=== PATIENT | female | born 1950 | race Caucasian/White ===

== ENCOUNTER → 2022-06-18 | Outpatient (CLI) | payer MEDICARE, BC ==
--- NOTE | 2022-06-18 14:59 | NM ---
EXAMINATION TYPE: NM bone scan whole body DATE OF EXAM: 06/18/2022 COMPARISON: NONE HISTORY: History of malignancy Delayed whole-body scanning was performed following the injection of 24.3 mCi Tc 99m MDP. Images acq uired 3 hours post injection. FINDINGS: Abnormal uptake involving bilateral hip likely post arthritic. Moderate intensity abnormal uptake involving bilateral knees greater on the left is likely post arthr itic. Mild intensity uptake throughout the thoracic spine with a focal moderate area at T11 on the right mo st likely degenerative. IMPRESSION: 1. Suspect abnormal uptake involving the hips bilaterally greater on the right is more likely arthrit ic rather than metastatic disease. There are no x-ray or CTs available for comparison. 2. Mild intensity uptake throughout the vertebral column of the thoracic spine is most typical for de generative change. Small focal area on the right at T11 likely is also more likely degenerative. Russell elate with x-ray as clinically warranted.
== END | disposition home or self-care (01) ==
LOC: RADNMMAIN 10:12
PROVIDERS: ATTEND Internal Medicine Hematology & Oncology
DX: C50.812 Malignant neoplasm of overlapping sites of left female breast (principal); M47.814 Spondylosis without myelopathy or radiculopathy, thoracic region
CPT/HCPCS: 78306; A9503

== ENCOUNTER 2022-11-24 05:45 | Day surgery (SDC) | payer MEDICARE, BC ==
[2022-11-22 11:23] VITALS: BMI 35.2
[~2022-11-24 05:45] MED LIST: BUPIVACAINE (PF) 0.5% 4.5 ML, HYALURONIDASE, HUMAN RECOMB 150 UNIT, LIDOCAINE 2% (PF) 9... IO PRN
[2022-11-24] MEDS ORDERED: LACTATED RINGERS 1,000 ML IV SCH (05:54)
[2022-11-24] MEDS ORDERED: TIMOLOL 0.5% OPHTH DROPS 5 ML BTL OP PRN (06:00)
[2022-11-24] MEDS ORDERED: MOXIFLOXACIN HCL 0.5% DROPS 3 ML BTL OP PRN (06:00)
[2022-11-24 06:16] VITALS: RESP 18; TEMP 97.7
[2022-11-24] MEDS ORDERED: LIDOCAINE 2% INJ 20 MG/ML (2 ML VIAL) ONE (07:45)
[2022-11-24] MEDS ORDERED: diphenhydrAMINE 50 MG/ML 1 ML VIAL ONE (07:45)
[2022-11-24] MEDS ORDERED: PROPOFOL 10 MG/ML 20 ML VIAL IV ONE (07:45)
[2022-11-24] MEDS ORDERED: fentaNYL (PF) 50 MCG/ML 2 ML AMP ONE (07:45)
[2022-11-24] MEDS ORDERED: GLYCOPYRROLATE 0.2 MG/ML 2 ML VIAL ONE (07:45)
[2022-11-24] MEDS ORDERED: MIDAZOLAM 2 MG/2 ML VIAL ONE (07:45)
[2022-11-24] MEDS ORDERED: LACTATED RINGERS 1,000 ML IV ONE (07:48)
[2022-11-24] MEDS ORDERED: BALANCED SALT IRRIG SOLN COMB2 500 ML IRRIGATION ONE (07:58)
[2022-11-24] MEDS ORDERED: BALANCED SALT IRRIG SOLN COMB2 15 ML IRRIG.SOLN IRRIGATION ONE (08:00)
[2022-11-24] MEDS ORDERED: FLUORESCEIN STRIPS 1 MG STRIP LEFT EYE ONE (08:40)
[2022-11-24] MEDS ORDERED: TETRACAINE 0.5% OPHTH (PF) DROPS 4 ML BTL LEFT EYE ONE (09:16)
--- NOTE | 2022-11-24 10:02 | P.OP ---
Date of Procedure: 11/24/22 Preoperative Diagnosis: corneal melt Postoperative Diagnosis: anterior lamaller corneal transplant left Procedure(s) Performed: same Implants: none Anesthesia: MAC Surgeon: Contreras Roca Pathology: none sent Condition: stable Disposition: same day Indications for Procedure: pending loss of integrity Operative Findings: no complications
[2022-11-24 10:28] VITALS: BP 164/75; PULSE 50
--- NOTE | 2022-11-24 22:44 | OP ---
OPERATIVE REPORT DATE OF SERVICE : 11/24/2022 PROCEDURE PERFORMED: Anterior lamellar corneal transplant of the left eye. 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 ANESTHESIA: Regional block with retrobulbar anesthesia. ESTIMATED BLOOD LOSS: None. SPECIMEN TAKEN: Culture and sensitivity of transport media for the transplant tissue. 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 The left eye has demonstrated progressive central corneal thinning over the last several months and multiple forms of rescue have been attempted and failed at this point to where there is less than 150 microns of tissue between the anterior chamber and the outside world in this nonphthisical eye. Therefore, it was chosen to reinforce the existing cornea with an anterior lamellar corneal transplant tissue. After obtaining the appropriate consent, the patient was brought to the operating room. there she was placed on cardiac monitoring, prepped and draped in usual sterile manner. She was approached from her left temporal side and Brake calipers were used to identify the size of the allowable remaining tissue to put a donor graft onto the eye. This was identified as approximately 9 mm and using a Nedra trephine blade centered over the patient's cornea, a 9 mm diameters partial groove was created on the patient's cornea. This was inked with gentian luma and using a crescent blade, a pocket was created between the 9 mm darek and the peripheral corneal limbus, so for 360 degrees, a partial thickness scleral flap was created in the patient's post eye to receive the donor tissue. Once the groove was created and epithelium was removed, which was confirmed using fluorescein, attention was then directed to the donor tissue. Donor tissue was identified as [id number]. This was brought onto the back table and preparation of this tissue was placed on the artificial anterior chamber and both a 9 mm Nedra trephine as well as a 9.5 Nedra trephine were placed centrally over the donor cornea and marked with gentian luma. The donor cornea was then inverted and placed on the trephination punch bed, well positioned and centered on the bed. The [place] trephine was assembled and vacuum drawn against the donor tissue and a 9.5 mm donor button was created in the donor tissue. The donor button was then brought to the patient's field and endothelium was removed from the underside of the donor cornea. The 0.5 mm edge between the 9 and 9.5 contreras on the donor tissue was removed of epithelium and as much of the Garcia's membrane as possible leaving roughly a 0.5 mm ring of bare stroma. An 8-point corneal suturing index was inked with gentian luma, placed on the patient's cornea and then the donor button was placed on the patient's host cornea after removing all epithelium. Small amount of Tisseel was placed between the 2 and allowed to cure for approximately 90 seconds. Once this was accomplished, then 8 interrupted 10-0 nylon sutures were passed in a radial fashion through the donor and into the post corneal limbus as far as permitted through the previously created partial thickness dissection. All 10-0 nylon sutures were rotated, had a notch rotated into the stroma of either the host or the donor tissue. The incision was confirmed watertight and as much of the donor tissue was tucked into the pocket as feasible. The patient received 2 drops of 0.5% timolol followed by 2 drops of moxifloxacin and she was then lightly patched and shielded in the usual manner. There were no complications from the procedure. She tolerated the procedure well and was returned to outpatient recovery in good condition. MMODL / IJN: [id number] / SHANTEL
== END 2022-11-24 11:04 | disposition home or self-care (01) ==
LOC: OR 05:45
PROVIDERS: ATTEND Ophthalmology
DX: H16.23 Neurotrophic keratoconjunctivitis (principal); E07.9 Disorder of thyroid, unspecified; M19.90 Unspecified osteoarthritis, unspecified site; Z79.82 Long term (current) use of aspirin; Z79.899 Other long term (current) drug therapy; Z79.890 Hormone replacement therapy; Z85.3 Personal history of malignant neoplasm of breast; Z88.0 Allergy status to penicillin; Z88.2 Allergy status to sulfonamides; Z91.041 Radiographic dye allergy status; Z91.048 Other nonmedicinal substance allergy status; Z88.8 Allergy status to other drugs, medicaments and biological substances
CPT/HCPCS: 87070; 87205; 65710; J2250; J3470; J1200; J2001 ×2; J3010; J2704

== ENCOUNTER 2023-01-21 06:13 | Day surgery (SDC) | payer MEDICARE, BC ==
[~2023-01-21 06:13] MED LIST changes: +DEXAMETHASONE SOD PHOSPHATE 4 MG/ML 1 ML VIAL IV ONE; +GENTAMICIN 80 MG/2 ML (MDV) VIAL IM NR; +LACTATED RINGERS 1,000 ML IV SCH; +LIDOCAINE 1% (10MG/ML) FOR IV START INTRADERMA PRN; +MIDAZOLAM 2 MG/2 ML VIAL IV PRN; +MOXIFLOXACIN HCL 0.5% DROPS 3 ML BTL OP PRN; +NEOMYCIN-POLYMYXIN-DEXAMETH OINT 3.5 GM TUBE OPHTHALMIC NR; +ONDANSETRON 4 MG/2 ML VIAL IVP ONE
[2023-01-21 06:56] VITALS: TEMP 96.9
[2023-01-21] MEDS ORDERED: diphenhydrAMINE 50 MG/ML 1 ML VIAL ONE ×2 (06:58→07:35)
[2023-01-21] MEDS ORDERED: HYDROmorphone 0.5 MG/0.5 ML SYRINGE IVP PRN (07:00)
[2023-01-21] MEDS ORDERED: diphenhydrAMINE 50 MG/ML 1 ML VIAL IVP ONE (07:05)
[2023-01-21] MEDS ORDERED: fentaNYL (PF) 50 MCG/ML 2 ML AMP ONE (07:35)
[2023-01-21] MEDS ORDERED: SUCCINYLCHOLINE CHLORIDE 200 MG/10 ML VIAL IV ONE (07:35)
[2023-01-21] MEDS ORDERED: PROPOFOL 10 MG/ML 20 ML VIAL IV ONE (07:35)
[2023-01-21] MEDS ORDERED: MIDAZOLAM 2 MG/2 ML VIAL ONE (07:35)
[2023-01-21] MEDS ORDERED: ceFAZolin 1,000 MG in SODIUM CHLORIDE 0.9% 500 ML IRRIGATION ONE (08:33)
[2023-01-21] MEDS ORDERED: BALANCED SALT IRRIG SOLN COMB2 15 ML IRRIG.SOLN IRRIGATION ONE (08:34)
[2023-01-21] MEDS ORDERED: LACTATED RINGERS 1,000 ML IV ONE (09:30)
--- NOTE | 2023-01-21 09:34 | P.OP ---
Date of Procedure: 01/21/23 Preoperative Diagnosis: phthisis bulbi OS Postoperative Diagnosis: same Procedure(s) Performed: evisceration OS Implants: IOI hydroxyapatite 18 mm orbital implant Anesthesia: GETA, regional Surgeon: Contreras Roca Estimated Blood Loss (ml): 5 Pathology: other (microbiology) Condition: stable Disposition: same day Indications for Procedure: painful left eye Operative Findings: no complications
[2023-01-21 10:34] VITALS: RESP 18
[2023-01-21 10:45] VITALS: BP 138/79; PULSE 64
--- NOTE | 2023-01-21 12:27 | OP ---
OPERATIVE REPORT DATE OF SERVICE : 01/21/2023 PROCEDURE PERFORMED: Evisceration with hydroxyapatite implant of the left eye. 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 ANESTHESIA: General. ESTIMATED BLOOD LOSS: 5 mL. SPECIMEN TAKEN: Uveal contents for microbiological studies. DESCRIPTION OF PROCEDURE: This is a patient, who has undergone multiple corneal transplants over the last 10 to 15 years, who approximately 7 years ago began to experience problems with rejection of the cornea, which ultimately led to no light perception and some problems with endophthalmitis. She has consistently had difficulty with maintaining the intraocular pressure at a normal level without experiencing discomfort. Recently, she has undergone an anterior lamellar keratoplasty to control what was developing into a descemetocele of this eye, within the last week and a half, however, the patient has begun to experience significant discomfort within the eye, markedly elevated intra- ocular pressures, and with no expectation of recovering sight in this eye, and the excruciating discomfort she has been experiencing. She has elected to undergo removal of the eye itself. Therefore, today, after obtaining the appropriate consent, the patient was brought to the operating room. There, she was placed under general anesthesia and intubated. She was prepped and draped in the usual sterile manner and a retrobulbar anesthetic consisting of 2% lidocaine without epinephrine and 0.5% Marcaine without epinephrine and Wydase were injected into the retrobulbar space. An eyelid speculum was placed on the patient's eye and a limbal peritomy of the conjunctival tissue was performed for 360 degrees. Hemostasis was controlled with pressure and a dampened either gauze or tonsil sponge. At the corneal limbus, an incision was begun with a #11 blade and was continued with Sharon scissors for 360 degrees, and the entire anterior portion of the eye was removed and set aside. The uveal tissue was then readily from the globe of the eye using a spatula. The entire contents of the uveal tissue were sent for microbiological study to rule out any particular infection, additional cleaning of the inside of the globe was accomplished with miniature tonsil sponges, and once the optic nerve was identified, a Bovie cautery was used to cauterize the remnant of the optic nerve at the back of the eye, two relaxing incisions were performed along the horizontal equator of the globe and sizing instruments were used to determine the appropriate size of an implant, 18 mm was identified and an 18 mm hydroxyapatite implant was placed within the confines of the sclera using a young implantation device, after the hydroxyapatite material was covered with Maxitrol ointment. The sclera was closed in its entirety using a locking running suture using 5-0 Dacron. The previously conjunctival tissue was then reapproximated over the sclera, closing the entire eyeball within the conjunctiva using 8-0 Vicryl in an interrupted fashion. She received 80 mg of gentamicin in the subconjunctival space at the end of the case, as well as 1 g of Ancef intravenously at the beginning of the case. Additional antibiotic used during the course of the procedure was an Ancef irrigation of the globe prior to implantation of the hydroxyapatite material. A conformer, which was associated with the hydroxyapatite implant was covered in Maxitrol ointment, placed in the eye, and a tight patch and shield were placed over the left eye. There were no complications from the procedure. She tolerated the procedure well and was awakened in the room and returned to phase 1 recovery, following the operation. MMODL / IJN: [id number] /
--- NOTE | 2023-01-21 12:36 | OP ---
OPERATIVE REPORT DATE OF SERVICE : 01/21/2023 ANESTHESIA: General. ESTIMATED BLOOD LOSS: 5 mL. SPECIMEN TAKEN: Uveal contents of the eye for microbiological study. NARRATIVE: This patient has undergone multiple corneal transplant surgeries, who has experienced no light perception and problems with glaucoma for the last 3 years, underwent an anterior lamellar corneal transplants approximately DICTATION ENDS HERE MMODL / IJN: [id number] /
== END 2023-01-21 11:15 | disposition home or self-care (01) ==
LOC: OR 06:13
PROVIDERS: ATTEND Ophthalmology
DX: H54.40 Blindness, one eye, unspecified eye (principal); Z88.0 Allergy status to penicillin; Z79.899 Other long term (current) drug therapy
CPT/HCPCS: 87070; 87205; 87075; 65105; J2250; J0330; J3470; J1200; J1100; J2001; J2405; J0690; J3010; J1580; J2704

== ENCOUNTER → 2023-10-21 | Outpatient (CLI) | payer MEDICARE, BC ==
--- NOTE | 2023-10-21 13:36 | CT ---
EXAMINATION TYPE: CT sinus wo con DATE OF EXAM: 10/21/2023 COMPARISON: None HISTORY: 73-year-old female J32.[address] DLP: 440.7 mGycm Automated exposure control for dose reduction was used. TECHNIQUE: Noncontrast axial views of the paranasal sinuses were obtained. Coronal and sagittal recon structions performed. FINDINGS: PARANASAL SINUSES: There is complete to near complete opacification of the bilateral ethmoid air cells. Moderate mucosal thickening sphenoid sinuses with some frothy density in the right. Mild to moderate mucosal thickening bilateral maxillary sinuses. Moderate to severe mucosal thickening by frontal sinuses. No air-fluid level. Reactive ho- osteogenesis is not seen. There is no destruction of the osseous ramirez of the paranasal sinuses. THE NASAL CAVITY: The osteomeatal complexes appear patent though there is mucosal thickening narrowing the maxillary in fundibula on both sides. Leftward nasal septal deviation. Left globe prosthesis. Mastoid air cells and middle ear cavities are well pneumatized. Reformatted images confirm above findings. IMPRESSION: 1. Moderate to severe chronic pansinusitis, significantly affecting the ethmoid air cells and bifront al sinuses. 2. Some frothy density in the right sphenoid sinus may be seen with an acute sinusitis. 3. While the osteomeatal complexes appear patent, there is mucosal thickening narrowing both maxillar y infundibula. 4. Leftward nasal septal deviation. 5. Left globe prosthesis.
== END | disposition home or self-care (01) ==
LOC: RADCTMAIN 12:31
PROVIDERS: ATTEND Otolaryngology
DX: J34.2 Deviated nasal septum (principal); J32.0 Chronic maxillary sinusitis; J32.4 Chronic pansinusitis; J34.89 Other specified disorders of nose and nasal sinuses; Z97.0 Presence of artificial eye
CPT/HCPCS: 70486

== ENCOUNTER → 2024-09-13 | Outpatient (CLI) | payer MEDICARE, BC ==
[2024-09-13 14:51] LABS: HCT 42.3 % (37.2-46.3); HGB 13.4 g/dL (12.0-15.0); MCH 29.6 pg (27.0-32.0); MCHC 31.7 g/dL (32.0-37.0); MCV 93.4 FL (80.0-97.0); Mean Platelet Volume 11.3 FL (9.5-12.2); NRBC Per 100 WBC 0 X 10*3/uL (0.00-0.01); Platelet Count 306 X 10*3/uL (140-440); RBC 4.53 X 10*6/uL (4.10-5.20); RDW 14.7 % (11.5-14.5); WBC 6.64 X 10*3/uL (4.50-10.00)
[2024-09-13 15:09] LABS: Blood Urea Nitrogen 12.3 mg/dL (9.0-27.0); Chloride 104 mmol/L (96-109); Potassium 4.9 mmol/L (3.5-5.5); Sodium 139 mmol/L (135-145)
== END | disposition home or self-care (01) ==
LOC: LABWHC1 09:06
PROVIDERS: ATTEND Internal Medicine Interventional Cardiology
DX: Z01.812 Encounter for preprocedural laboratory examination (principal); R42 Dizziness and giddiness
CPT/HCPCS: 36415; 80051; 82565; 84520; 85027

== ENCOUNTER 2024-09-19 10:37 | Day surgery (SDC) | payer MEDICARE, BC ==
[2024-09-17 15:13] VITALS: BMI 33.2
[~2024-09-19 10:37] MED LIST changes: +ALPRAZolam 0.25 MG TAB PO PRN; +ALPRAZolam 0.5 MG TAB PO PRN; -BUPIVACAINE (PF) 0.5% 4.5 ML, HYALURONIDASE, HUMAN RECOMB 150 UNIT, LIDOCAINE 2% (PF) 9... IO PRN; -DEXAMETHASONE SOD PHOSPHATE 4 MG/ML 1 ML VIAL IV ONE; -GENTAMICIN 80 MG/2 ML (MDV) VIAL IM NR; -LACTATED RINGERS 1,000 ML IV SCH; -LIDOCAINE 1% (10MG/ML) FOR IV START INTRADERMA PRN; -MIDAZOLAM 2 MG/2 ML VIAL IV PRN; -MOXIFLOXACIN HCL 0.5% DROPS 3 ML BTL OP PRN; -NEOMYCIN-POLYMYXIN-DEXAMETH OINT 3.5 GM TUBE OPHTHALMIC NR; +NITROGLYCERIN SL TABS 0.4 MG TAB SUBLINGUAL PRN; -ONDANSETRON 4 MG/2 ML VIAL IVP ONE
[2024-09-19] MEDS: ATORVASTATIN 80 MG TAB PO STA (10:50)
[2024-09-19] MEDS: ASPIRIN 325 MG TAB PO STA (10:50)
[2024-09-19] MEDS: HEPARIN SODIUM,PORCINE 10,000 UNIT in SODIUM CHLORIDE 0.9% 1,000 ML IRRIGATION PRN (10:58)
[2024-09-19] MEDS: HEPARIN SODIUM,PORCINE (1 ML) 2,500 UNIT in SODIUM CHLORIDE 0.9% 250 ML IRRIGATION PRN (10:59)
[2024-09-19 11:00] VITALS: RESP 16; TEMP 97.8
[2024-09-19] MEDS: SODIUM CHLORIDE 0.9% 1,000 ML IV ONE (11:16)
[2024-09-19] MEDS: MIDAZOLAM 2 MG/2 ML VIAL IVP ONE (11:48)
[2024-09-19] MEDS: fentaNYL (PF) 50 MCG/1 ML VIAL IVP ONE (11:48)
[2024-09-19] MEDS: LIDOCAINE 1% INJ 10MG/ML (30 ML VIAL-PF) SQ ONE (11:48)
[2024-09-19] MEDS: VERAPAMIL SYRINGE (5 MG/10 ML) INTRAARTER ONE (11:49)
[2024-09-19] MEDS: IV FLUID CONTINUATION 1,000 ML IV ONE (11:52)
[2024-09-19] MEDS: HEPARIN SODIUM 1,000 UN/ML (10ML VL) IVP ONE (11:52)
[2024-09-19] MEDS: IOPAMIDOL-300 100ML BTL INJ ONE (11:58)
[2024-09-19] MEDS ORDERED: RX INFO: IV CONTRAST WAS GIVEN 1 EACH MISC MISCELLANE PRN (12:15)
[2024-09-19] MEDS: SODIUM CHLORIDE 0.9% 1,000 ML IV SCH (12:15)
[2024-09-19] MEDS: SODIUM CHLORIDE 0.9% 1,000 ML in EMPTY BAG 1 BAG IV SCH (12:15)
--- NOTE | 2024-09-19 12:21 | P.CARDCATH ---
Date of Procedure: 09/19/24 Description of Procedure: Cardiac Catheterization: The patient is a 74-year-old female with history of hyperlipidemia who has been complaining of progressive dyspnea on exertion, had an abnormal MPI and evidence of cardiomyopathy. Recommendations were made regarding cardiac catheterization, the risks and the complications were discussed with the patient who is in full understanding and agreement. Procedure Description: Patient was brought to labor economist in fasting semi-sedated state after receiving Fentanyl and Benadryl achieiving moderate conscious sedated state. Using Xylocaine Anesthesia and modified Seldinger technique, a 6-Chinese sheath was introduced in the right radial artery . Subsequently, selective coronary angiography was performed using a 5-Chinese 3.5 bend Katherine catheter. Multiple views of the coronary artery including hemiaxial views were obtained. The 5 Chinese pigtail catheter was used to cross the aortic valve and LVEDP was calculated. Following that, catheter and sheath were removed. Hemostasis was obtained with deployment of vascular band . There was no immediate complication. Patient was returned to room in stable condition. Of note, the patient received a total of 4500 units of intravenous heparin as well as intra-arterial verapamil. Findings: Left main: This is a short size vessel, bifurcating into LAD and left circumflex, left main has no obstructive disease. LAD: This is a large size vessel, reaching to the apex with a wraparound apex segment giving rise to diagonal branch. The left anterior sending artery and its branches have no obstructive disease. Proximally there is a fistula originating from the LAD that appears to empty probably in the atrium of moderate size. Left circumflex: This is a large nondominant vessel giving rise to large obtuse marginal branch in the midsegment. The first and second acute marginal branch is small in caliber. The left circumflex and its branches have no obstructive disease. RCA: This is a large dominant vessel, bifurcating distally to PDA and PLV, the right coronary artery and its branches have no obstructive disease Left Ventriculogram: Not performed Hemodynamics: There was no gradient across aortic valve, LVEDP was 6-8 mmHg Conclusion: 1. No evidence of obstructive disease 2. 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 Right dominance 4. Normal LVEDP Recommendations: I have recommended to continue medical therapy with close follow-up of the LV function and adjust treatment as needed for her cardiomyopathy. The findings and the recommendations were discussed with the patient and the family and they were in full understanding and agreement. Duration of sedation is 17 minutes.
[2024-09-19] MEDS: amLODIPine 5 MG TAB PO STA (14:47)
[2024-09-19 17:08] VITALS: BP 167/76; PULSE 67
[2024-09-19] MEDS ORDERED: GABAPENTIN 300 MG CAP PO SCH (21:00)
[2024-09-20] MEDS ORDERED: LEVOTHYROXINE 50 MCG TAB PO SCH (06:30)
[2024-09-20] MEDS ORDERED: FLUDROCORTISONE 0.1 MG TAB PO SCH (09:00)
[2024-09-20] MEDS ORDERED: ASPIRIN 81 MG PO SCH (09:00)
[2024-09-20] MEDS ORDERED: ATORVASTATIN 20 MG TAB PO SCH (09:00)
== END 2024-09-19 16:23 | disposition home or self-care (01) ==
LOC: CATHCVL 10:37
PROVIDERS: ATTEND Internal Medicine Interventional Cardiology
DX: R06.09 Other forms of dyspnea (principal); I25.41 Coronary artery aneurysm; I42.8 Other cardiomyopathies; I08.1 Rheumatic disorders of both mitral and tricuspid valves; E78.2 Mixed hyperlipidemia; E07.9 Disorder of thyroid, unspecified; R55 Syncope and collapse; R42 Dizziness and giddiness; Z79.890 Hormone replacement therapy; Z79.82 Long term (current) use of aspirin; Z79.52 Long term (current) use of systemic steroids; Z79.899 Other long term (current) drug therapy; Z87.891 Personal history of nicotine dependence; Z85.3 Personal history of malignant neoplasm of breast; Z91.81 History of falling; Z82.49 Family history of ischemic heart disease and other diseases of the circulatory system; Z88.0 Allergy status to penicillin; Z88.2 Allergy status to sulfonamides; Z88.8 Allergy status to other drugs, medicaments and biological substances
CPT/HCPCS: 93458; C1769 ×2; C1894; J2250; J1644 ×3; J2003; Q9967; J3010